=== PATIENT | male | born 1995 | race Caucasian/White ===

== ENCOUNTER 2020-03-21 14:35 | Emergency (ER) | payer MEDICAID ==
[~2020-03-21] VITALS: Ht 167.6 cm; Wt 68.0 kg
[2020-03-21 14:39] VITALS: BP 150/97
[2020-03-21 15:15] VITALS: BP 150/97
== END 2020-03-21 15:15 | disposition home or self-care (01) ==
LOC: MED 14:35
DX: M54.6 Pain in thoracic spine (principal); L29.9 Pruritus, unspecified; F17.210 Nicotine dependence, cigarettes, uncomplicated; Z71.6 Tobacco abuse counseling; W57.XXXA Bitten or stung by nonvenomous insect and other nonvenomous arthropods, initial encounter; Y93.89 Activity, other specified; Y92.89 Other specified places as the place of occurrence of the external cause; Y99.8 Other external cause status
CPT/HCPCS: 90471; 90715; 99283

== ENCOUNTER 2022-09-23 15:50 | Emergency (ER) | payer MEDICAID, OTHER ==
[~2022-09-23] VITALS: Ht 167.6 cm; Wt 77.6 kg
[2022-09-23 15:56] VITALS: BP 120/87
[2022-09-23] MEDS ORDERED: AZITHROMYCIN 250 MG TAB PO ONE (16:00)
[2022-09-23] MEDS ORDERED: cefTRIAXone 1,000 MG in LIDOCAINE MPF 1% 2.1 ML IM ONE (16:00)
[2022-09-23] MEDS ORDERED: cefTRIAXone 1,000 MG VIAL ONE (16:07)
[2022-09-23] MEDS ORDERED: LIDOCAINE MPF 1% 5 ML ONE (16:08)
[2022-09-23] MEDS ORDERED: DOXY100T9 PO (16:08)
--- NOTE | 2022-09-23 17:20 | NUR ---
Note undone in EDM - 09/23/22 at 1720 by MNGERARDO Patient discharged with v/s stable. Written and verbal after care instructions given and explained. Patient alert, oriented and verbalized understanding of instructions. Ambulatory with steady gait. All questions addressed prior to discharge. ID band removed. Patient advised to follow up with PMD. Rx of DOXYCYCLINE given. Patient educated on indication of medication including possible reaction and side effects. Opportunity to ask questions provided and answered.
== END 2022-09-23 16:20 | disposition home or self-care (01) ==
LOC: MED 15:50
DX: A74.9 Chlamydial infection, unspecified (principal); A54.9 Gonococcal infection, unspecified
CPT/HCPCS: 87491; 96372; 99283; J0696; J2001

== ENCOUNTER 2024-03-21 13:33 | Emergency (ER) | payer OTHER ==
[~2024-03-21] VITALS: Ht 167.6 cm; Wt 76.2 kg
[~2024-03-21 13:33] MED LIST: DOXY100T9 PO
[2024-03-21 13:50] VITALS: BP 150/93; PULSE 83; RESP 18; TEMP 98.5; O2SAT 100
[2024-03-21] MEDS: NACL 0.9% 1,000 ML IV ONE (14:54)
[2024-03-21] MEDS: ONDANSETRON 4 MG/2 ML VIAL IVP ONE (14:54)
[2024-03-21] MEDS: FAMOTIDINE 20 MG/2 ML VIAL IVP ONE (14:56)
[2024-03-21 14:57] LABS: BASOPHILS % (AUTO) 0.3 % (0.0-2.0); HEMATOCRIT 46.2 % (36-52); HEMOGLOBIN 15.8 g/dL (12.0-18.0); LYMPHOCYTES # (AUTO) 1.5 K/uL (2.0-11.5); LYMPHOCYTES % (AUTO) 10.5 % (20.5-51.1); MEAN CORPUSCULAR HEMOGLOBIN 31 pg (27-31); MEAN CORPUSCULAR HGB CONC 34 g/dL (33-37); MEAN CORPUSCULAR VOLUME 90.3 fL (80-94); MONOCYTES # (AUTO) 0.9 K/uL (0.8-1.0); MONOCYTES % (AUTO) 6.2 % (1.7-9.3); NEUTROPHILS # (AUTO) 11.6 K/uL (1.8-7.7); PLATELET COUNT (AUTO) 285 K/uL (140-450); RED BLOOD CELL COUNT(AUTO) 5.12 MIL/uL (4.20-6.10); RED CELL DISTRIBUTION WIDTH 13.3 % (11.6-13.7); WHITE BLOOD COUNT (AUTO) 13.9 K/uL (4.8-10.8)
[2024-03-21] MEDS: ALUMINUM HYD/MAG/SIMETHICONE 30 ML UDC PO ONE (14:57)
[2024-03-21 15:04] LABS: ANION GAP 12.8 (8-16); CALCIUM 9.5 mg/dL (8.5-10.1); CARBON DIOXIDE 28.9 mmol/L (21-32); CREATININE 0.9 mg/dL (0.6-1.3); POTASSIUM 3.7 mmol/L (3.5-5.1)
[2024-03-21 15:13] LABS: ALBUMIN 4.3 g/dL (3.4-5.0); BILIRUBIN,DIRECT 0.1 mg/dL (0.0-0.3); TOTAL BILIRUBIN 0.6 mg/dL (0.0-1.0); TOTAL PROTEIN, SERUM 8.5 g/dL (6.4-8.2)
[2024-03-21] MEDS ORDERED: FAMO-90 PO (16:56)
[2024-03-21 17:25] VITALS: BP 131/74; PULSE 77; RESP 16; TEMP 98.1; O2SAT 99
== END 2024-03-21 17:25 | disposition home or self-care (01) ==
LOC: MED 13:33
DX: K29.70 Gastritis, unspecified, without bleeding (principal); R11.2 Nausea with vomiting, unspecified; F12.90 Cannabis use, unspecified, uncomplicated; Z79.899 Other long term (current) drug therapy
CPT/HCPCS: 36415; 76705; 80048; 80076; 83690; 85025; 96361; 96374; 96375; 99285; J2405; J3490; J7030; Q0092